=== PATIENT | female | born 1960 | race Caucasian/White ===

== ENCOUNTER 2020-07-17 14:11 | Emergency (ER) | payer OTHER, MEDICAID, SELFPAY ==
[~2020-07-17] VITALS: Ht 162.6 cm; Wt 90.7 kg
[2020-07-17 14:24] VITALS: BP 142/77
[2020-07-17] MEDS ORDERED: DEXAMETHASONE 10 MG/ML VIAL IVP ONE ×2 (14:25→15:30)
[2020-07-17 15:08] LABS: BASOPHILS % (AUTO) 0.2 % (0.0-2.0); HEMATOCRIT 43.1 % (36-48); HEMOGLOBIN 14.5 g/dL (12.0-16.0); LYMPHOCYTES # (AUTO) 1.1 K/uL (2.5-16.5); LYMPHOCYTES % (AUTO) 17.2 % (20.5-51.1); MEAN CORPUSCULAR HEMOGLOBIN 29 pg (27-31); MEAN CORPUSCULAR HGB CONC 34 g/dL (33-37); MEAN CORPUSCULAR VOLUME 85.6 fL (80-94); MONOCYTES # (AUTO) 0.4 K/uL (0.8-1.0); MONOCYTES % (AUTO) 5.9 % (1.7-9.3); NEUTROPHILS # (AUTO) 4.8 K/uL (1.8-7.7); NEUTROPHILS % (AUTO) 76.7 % (42.2-75.2); PLATELET COUNT (AUTO) 184 K/uL (140-450); RED BLOOD CELL COUNT(AUTO) 5.04 MIL/uL (4.20-5.40); RED CELL DISTRIBUTION WIDTH 14.1 % (11.6-13.7); WHITE BLOOD COUNT (AUTO) 6.3 K/uL (4.8-10.8)
[2020-07-17 15:34] LABS: ALBUMIN 3.1 g/dL (3.4-5.0); ANION GAP 14.2 (8-16); CARBON DIOXIDE 25.8 mmol/L (21-32); CREATININE 0.7 mg/dL (0.6-1.3); TOTAL BILIRUBIN 0.4 mg/dL (0.0-1.0)
[2020-07-17 15:39] LABS: PROTHROMBIN TIME 10.4 secs (10.8-13.4)
[2020-07-17 15:44] LABS: C-REACTIVE PROTEIN QUANT 3.8 mg/dL (0.0-0.9)
[2020-07-17 16:04] LABS: APPEARANCE,URINE HAZY (CLEAR); BILIRUBIN,URINE NEGATIVE (NEGATIVE); BLOOD, URINE NEGATIVE (NEGATIVE); COLOR,URINE DARK YELLOW (YELLOW); LEUKOCYTE ESTERASE ,URINE TRACE (NEGATIVE); NITRITE, URINE NEGATIVE (NEGATIVE); UGLUCOSE NEGATIVE (NEGATIVE)
[2020-07-17 16:04] LABS: CKMB RELATIVE INDEX 0.3 (0.0-2.5)
[2020-07-17] MEDS ORDERED: AZITHROMYCIN 500 MG in DEXTROSE 5% 250 ML IV ONE (16:05)
[2020-07-17] MEDS ORDERED: AZITHROMYCIN 500 MG INJ VIAL IV ONE (16:11)
[2020-07-17 16:27] LABS: RSV NEGATIVE (NEGATIVE)
[2020-07-17 16:34] LABS: RBC,URINE 0-5 /HPF (0-5)
[2020-07-17] MEDS ORDERED: POTASSIUM CHLORIDE 10 MEQ TABER PO ONE (17:45)
[2020-07-17] MEDS ORDERED: LEVOFLOXACIN 500 MG/D5W PREMIX 100 ML IV ONE (18:25)
[2020-07-17 19:21] VITALS: BP 124/51
== END 2020-07-17 19:19 | disposition designated cancer center or children's hospital (05) ==
LOC: MED 14:11
DX: U07.1 COVID-19 (principal); J12.82 Pneumonia due to coronavirus disease 2019; N39.0 Urinary tract infection, site not specified; R09.02 Hypoxemia; I10 Essential (primary) hypertension
CPT/HCPCS: 36415; 36600; 71045; 80053; 81001; 82550; 82553; 82728; 82803; 83605; 83615; 83880; 84484; 85025; 85379; 85384; 85610; 85730; 86140; 87040; 87086; 87420; 87426; 87804; 93005; 96365; 96375; 99285; J0456; J1100; J1956; J7060; U0003; 96367